=== PATIENT | male | born 1995 | race Caucasian/White ===

== ENCOUNTER 2022-05-01 23:31 | Emergency (ER) | payer MEDICAID ==
[~2022-05-01] VITALS: Ht 177.8 cm; Wt 84.8 kg
[2022-05-01 23:46] VITALS: BP 127/85
--- NOTE | 2022-05-01 23:53 | NUR ---
pt ambulated to bed #7
[2022-05-02] MEDS ORDERED: HYDROcodone/APAP 5/325 MG 1 TAB TAB PO ONE (00:25)
--- NOTE | 2022-05-02 00:35 | NUR ---
PT MEDICATED PER ORDERS GIVEN
--- NOTE | 2022-05-02 00:35 | NUR ---
LAB AT BEDSIDE
[2022-05-02 00:55] LABS: ANION GAP 6.2 (8-16); CARBON DIOXIDE 35.1 mmol/L (21-32); CREATININE 0.8 mg/dL (0.6-1.3); POTASSIUM 4.3 mmol/L (3.5-5.1)
[2022-05-02 00:57] LABS: APPEARANCE,URINE CLEAR (CLEAR); COLOR,URINE YELLOW (YELLOW)
[2022-05-02 00:58] LABS: BILIRUBIN,URINE NEGATIVE (NEGATIVE); BLOOD, URINE NEGATIVE (NEGATIVE); LEUKOCYTE ESTERASE ,URINE NEGATIVE (NEGATIVE); NITRITE, URINE NEGATIVE (NEGATIVE); PH,URINE 6.5 (5.0-9.0); UGLUCOSE NEGATIVE (NEGATIVE)
[2022-05-02 01:10] LABS: ALBUMIN 3.1 g/dL (3.4-5.0); TOTAL BILIRUBIN 0.2 mg/dL (0.0-1.0)
[2022-05-02 01:25] LABS: BASOPHILS % (AUTO) 0.3 % (0.0-2.0); EOSINOPHILS # (AUTO) 0.3 K/uL (0-0.4); EOSINOPHILS % (AUTO) 2.6 % (0.0-4.0); HEMATOCRIT 43.8 % (36-52); HEMOGLOBIN 14.6 g/dL (12.0-18.0); LYMPHOCYTES # (AUTO) 2.8 K/uL (2.0-11.5); LYMPHOCYTES % (AUTO) 23.2 % (20.5-51.1); MEAN CORPUSCULAR HEMOGLOBIN 29 pg (27-31); MEAN CORPUSCULAR HGB CONC 33 g/dL (33-37); MEAN CORPUSCULAR VOLUME 86.2 fL (80-94); MONOCYTES % (AUTO) 7.8 % (1.7-9.3); NEUTROPHILS % (AUTO) 66.1 % (42.2-75.2); PLATELET COUNT (AUTO) 288 K/uL (140-450); RED BLOOD CELL COUNT(AUTO) 5.08 MIL/uL (4.20-6.10); RED CELL DISTRIBUTION WIDTH 13.5 % (11.6-13.7); WHITE BLOOD COUNT (AUTO) 12.2 K/uL (4.8-10.8)
--- NOTE | 2022-05-02 01:35 | NUR ---
PT TAKEN TO CT VIA W/C
[2022-05-02] MEDS ORDERED: IBUP-2213 PO (03:36)
[2022-05-02] MEDS ORDERED: FAMO-90 PO (03:36)
--- NOTE | 2022-05-02 04:02 | NUR ---
PT REPORTS NO PAIN, IS AOX 4, AFEBRILE, AMBUALTES WITHOUT ASSISTANCE. WAS GIVEN DISCHARGE INSTRUCTIONS AND HE VERBALIZED UNDERSTANDING.
[2022-05-02 04:09] VITALS: BP 112/80
--- NOTE | 2022-05-02 04:16 | NUR ---
Patient discharged with v/s stable. Written and verbal after care instructions given and explained. Patient alert, oriented and verbalized understanding of instructions. Ambulatory with steady gait. All questions addressed prior to discharge. ID band removed. Patient advised to follow up with PMD. Rx of PEPCID and IBUPROFIN given. Patient educated on indication of medication including possible reaction and side effects. Opportunity to ask questions provided and answered.
== END 2022-05-02 04:02 | disposition home or self-care (01) ==
LOC: MED 23:31
DX: R10.11 Right upper quadrant pain (principal)
CPT/HCPCS: 36415; 74176; 76705; 80053; 81003; 83690; 85025; 99284; Q0092

== ENCOUNTER 2022-06-15 01:02 | Emergency (ER) | payer MEDICAID ==
[~2022-06-15] VITALS: Ht 180.3 cm; Wt 99.8 kg
[~2022-06-15 01:02] MED LIST: FAMO-90 PO; IBUP-2213 PO
[2022-06-15 01:08] VITALS: BP 134/78
--- NOTE | 2022-06-15 01:10 | NUR ---
Patient resting in bed, A/Ox4, chest rise and fall symmetrical, no s/s of distress, patient on monitor.
--- NOTE | 2022-06-15 01:15 | NUR ---
Dr. Good assessing patient.
--- NOTE | 2022-06-15 01:16 | NUR ---
TO BED 2 FOLLOWING TRIAGE
--- NOTE | 2022-06-15 01:18 | NUR ---
Patient resting in bed, A/Ox4, chest rise and fall symmetrical, no c/o pain or s/s of distress, patient on monitor
[2022-06-15] MEDS ORDERED: ACETAMINOPHEN EXTRA STRENGTH 500 MG TAB PO ONE (02:20)
[2022-06-15 02:27] VITALS: BP 127/85
--- NOTE | 2022-06-15 02:28 | NUR ---
Patient discharged with v/s stable. Written and verbal after care instructions given and explained. Patient verbalized understanding. Carried with steady gait. All questions addressed prior to discharge. Advised to follow up with PMD.
== END 2022-06-15 02:27 | disposition home or self-care (01) ==
LOC: MED 01:02
DX: M94.0 Chondrocostal junction syndrome [Tietze] (principal); R07.81 Pleurodynia
CPT/HCPCS: 74018; 99283

== ENCOUNTER 2023-03-29 13:38 | Emergency (ER) | payer MEDICAID ==
[~2023-03-29] VITALS: Ht 175.3 cm; Wt 79.8 kg
[2023-03-29 14:27] VITALS: BP 127/99; PULSE 99; RESP 18; TEMP 97.1; O2SAT 99
[2023-03-29] MEDS ORDERED: BACITRACIN OINT 500 UNITS/GM PKT TP ONE (14:54)
== END 2023-03-29 14:54 | disposition home or self-care (01) ==
LOC: MED 13:38
DX: S60.454A Superficial foreign body of right ring finger, initial encounter (principal); X58.XXXA Exposure to other specified factors, initial encounter; Y93.89 Activity, other specified; Y92.89 Other specified places as the place of occurrence of the external cause; Y99.8 Other external cause status
CPT/HCPCS: 99284